=== PATIENT | male | born 1985 | race Caucasian/White ===

== ENCOUNTER 2020-10-15 08:53 | Outpatient (CLI) | payer BC, SELFPAY ==
--- NOTE | 2020-10-31 14:06 | WPDHOMESLEEP ---
Sleep Study - Home Unattended Date of Study: 10/15/20 Ordering Provider: Charline Self NP Interpreting Provider: Gisel Cuevas MD Home Sleep Study Type: Apnea Link Air Height: 1.78 m Weight: 104.326 kg Body Mass Index: 33.0 Neck Circumference (inches): 16.5 [place]: 12 Reason for Sleep Study Hypersomnolence Sleep History Apolinar Bowles is a 35 year old man with choking and gasping at night. This is happened at least 6 times in the last 6 months. It is hard for him to catch his breath when it occurs. He snores often. Some days he is really tired on waking. There is a family history with his father and paternal grandmother both having sleep apnea. He occasionally awakens at night with heartburn, belching or coughing. He frequently snores loudly enough that others complain about it. he occasionally has trouble sleeping when he has a cold. He occasionally wakes up gasping for breath at night. He occasionally has breathing problems at night observed by others. He rarely sweats excessively at night, rarely notices his heart pounding or beating irregularly night. He rarely falls asleep during the day. He occasionally falls asleep involuntarily. He does not fall asleep while driving. He does not have loss of muscle tone with strong emotion. He rarely has daytime difficulties due to excessive sleepiness. He does not feel paralyzed on waking or falling asleep. He does not have vivid dream like scenes upon awakening or falling asleep. He rarely feels afraid to go to sleep. He does not have nightmares. He occasionally remembers his dreams. He occasionally has racing thoughts. He rarely feels sad or depressed. He occasionally has anxiety. He rarely has muscular tension. He occasionally notices parts of his body jerking. he rarely kicks at night. He rarely has crawling and aching feelings in his legs. He rarely has any kind of leg pain at night. He does not have morning jaw pain. He does not grind his teeth during sleep, is not bothered by pain during the day and is not awakened by pain at night. He occasionally wakes up feeling stiff in the morning with sore achy muscles and pain in the neck and spine. He has headaches. Normal bedtime 10:00 p.m. falling asleep within 10-20 minutes waking 1 or 2 times at night to get a drink or go use the bathroom. He stays awake for 10-15 minutes. He goes back to sleep and wakes the morning between 6 and 6:30 a.m.. On weekends, bedtime is also 10:00 p.m. but he wakes at 7:00 a.m.. He does not take naps in the afternoon or evening. A short nap might be refreshing. Habits: Never smoked tobacco. Caffeine 3-4 cups a day of coffee or tea. Alcohol 3 or 4 per week, social setting. [facility] Past Medical History Medical History (Updated 10/31/20 @ 14:09 by Gisel Cuevas MD) BMI 33.0-33.9,adult Choking episode occurring at night Encounter to establish care Herpesviral vesicular dermatitis Hypersomnia Seasonal allergies Snoring Family History Family History (Updated 10/31/20 @ 14:13 by Gisel Cuevas MD) Grandparent Diabetes mellitus Heart disease Obstructive sleep apnea Father Obstructive sleep apnea Social History Social History (Updated 10/07/20 @ 13:22 by Shiv Salas [facility]) Smoking status: Never smoker Alcohol intake: current Substance use: never Substance use type: does not use Medications Home Medications Medication Instructions Recorded Confirmed Type valacyclovir 1 gram tablet 2,000 mg PO Q12H PRN #30 tablet 10/07/20 10/07/20 Rx Sleep Procedure This test was performed using 4 channel monitoring including respiratory effort channel, snoring channel, heart rate channel, and oxygen saturation channel. This study was scored using CMS guidelines. Sleep Architecture Not applicable for home sleep test. Respiratory Analysis recording duration is 9 hours and 7 minutes. Evaluation duration is 8 hours and 55 minutes. Apnea-hypopnea index
[2020-10-31 14:18] VITALS: BMI 33.0
== END 2020-10-16 09:26 | disposition home or self-care (01) ==
LOC: ANHCSM 08:54
PROVIDERS: PCP Nurse Practitioner Family; Visit Provider Nurse Practitioner Family
DX: G47.33 Obstructive sleep apnea (adult) (pediatric) (principal); R06.83 Snoring
CPT/HCPCS: 95806

== ENCOUNTER 2023-08-02 09:21 | Outpatient (CLI) | payer BC, SELFPAY ==
--- NOTE | 2023-08-09 16:24 | WPDSLEEPSTUD ---
Sleep Study Date of Study: 08/02/23 Ordering Provider: Charline Self NP Interpreting Physician: Xena Cardona DO Sleep Study Type: Split Polysomnogram Height: 1.78 m Weight: 117.934 kg Body Mass Index: 37.3 Neck Circumference (inches): 17 [place]: 12 Reason for Sleep Study The patient had an ApneaLink home sleep test on October 15, 2020 that showed an overall AHI of 8, desaturation to 87%, snoring. It was recommended that he have a PAP titration study but it was never completed. Sleep History The patient is a 38-year-old male with anxiety, hyperlipidemia, seasonal allergies and previously diagnosed sleep apnea that had a sleep study ordered by his primary care to re-qualify for sleep apnea treatment. The patient occasionally awakens from sleep short of breath. He occasionally awakens at night with heartburn, belching or cough. He constantly snores loudly enough that others complain. He frequently has trouble sleeping when he has a cold. He occasionally wakes up gasping for air throughout the night. He occasionally has breathing problems at night observed by himself or others. He rarely sweats excessively at night. He occasionally has heart palpitations or irregular heartbeats during the night. He rarely falls asleep during the day and rarely falls asleep while driving. He denies sleep paralysis and cataplexy. He rarely has trouble at school or work due to sleepiness. He rarely experiences vivid dreamlike scenes upon awakening or falling asleep. He denies feeling afraid of going to sleep. He denies having nightmares. He occasionally remembers his dreams. He occasionally has thoughts racing through his mind. He denies feeling sad or depressed. He rarely has anxiety. He rarely has muscular tension. He occasionally notices parts of his body jerk. He occasionally kicks during the night. He occasionally has crawling and aching feelings in his legs and occasionally has leg pain during the night. He denies grinding his teeth during sleep but occasionally awakens with morning jaw pain. He denies being bothered by pain during the day and denies being awakened by pain during the night. He frequently wakes up feeling stiff in the morning. He occasionally wakes up with sore or achy muscles. He occasionally wakes up with pain in the neck, spine and other joints. He goes to bed at 9:00 p.m. on weekdays and at 10:00 p.m. on the weekends. It takes him 10-15 minutes to fall asleep. He wakes up several times throughout the night for unknown reasons and is able to fall back asleep relatively quickly. He wakes up at 5:30 a.m.. He typically gets 6-8 hours of sleep per night. He will stay in bed for 15 minutes after waking up in the morning. He currently lives with his and 3 children. He denies consuming any caffeinated beverages within 2 hours of bedtime. He denies engaging in physical exercise before bedtime. He will read watch television before falling asleep. He denies taking naps in the afternoon or the evening. He consumes 1 caffeinated beverage per day. He consumes alcohol socially on the weekends. He denies tobacco and recreational drug use. [facility] Past Medical History Medical History Acute sinusitis Anxiety BMI 33.0-33.9,adult BMI 34.0-34.9,adult BMI 35.0-35.9,adult BMI 37.0-37.9, adult Choking episode occurring at night Elevated blood pressure reading Elevated fasting glucose Encounter to establish care Herpesviral vesicular dermatitis Hyperlipidemia Hypersomnia Seasonal allergies Snoring Family History Family History Grandparent Diabetes mellitus Heart disease Obstructive sleep apnea Father Obstructive sleep apnea Social History Social History Smoking status: Never smoker Alcohol intake: current Alcohol use details: Socially
[2023-08-10 08:12] VITALS: BMI 37.3
== END 2023-08-03 06:24 | disposition home or self-care (01) ==
LOC: ANHCSM 09:22
PROVIDERS: PCP Nurse Practitioner Family; Visit Provider Nurse Practitioner Family
DX: G47.10 Hypersomnia, unspecified (principal); G47.33 Obstructive sleep apnea (adult) (pediatric)
CPT/HCPCS: 95811